=== PATIENT | female | born 1970 | race Caucasian/White ===

== ENCOUNTER → 2018-10-09 | Outpatient (CLI) | payer OTHER ==
[~2018-10-09] MED LIST: DIAZ-345 PO; DIPH50CA33 PO; EST.625T PO; FNT50TD TD; HYDR2TAB31 PO; HYOS0.1216 PO; LORA-404 PO; LORA-794 PO; LVF250T PO; NITR-65 PO; ONDA-42 SL; PHEN200T27 PO; PRD20T PO; TMSL.4C PO; TRIA1CAP4 PO
--- NOTE | 2018-10-09 11:29 | Diagnostic Imaging Report ---
INDICATION: Routine screening. COMPARISON: No prior mammograms are available for comparison. TECHNIQUE: 2D and 3D bilateral screening mammography was performed with CAD. FINDINGS: Both breasts are primarily involutional. No mass or malignant appearing microcalcifications are seen. The axillae are unremarkable. IMPRESSION: No mammographic features suspicious for malignancy are identified. ACR BI-RADS Category 2: Benign findings. Result letter will be mailed to the patient. Note: At least 10% of breast cancer is not imaged by mammography. Dictated by: Dictated on workstation # [id number]
== END ==
LOC: RAD 09:40
PROVIDERS: ATTEND Nurse Practitioner
DX: Z12.31 Encounter for screening mammogram for malignant neoplasm of breast (principal)
CPT/HCPCS: 77067